=== PATIENT | female | born 1995 | race Caucasian/White ===

== ENCOUNTER 2023-02-19 01:35 | Emergency (ER) | payer MEDICAID, SELFPAY ==
[2023-02-19 01:36] VITALS: BP 130/92; PULSE 90; RESP 18; TEMP 36.8; O2SAT 99; BMI 25.5
[2023-02-19 02:14] LABS: IDNOW Serial# 08D9AD1C; Strep A Nucleic Acid Positive (Negative)
[2023-02-19 02:36] LABS: Influenza A PCR NEGATIVE (Negative); Influenza B PCR NEGATIVE (Negative); Resp Syncy Virus RNA Qual PCR NEGATIVE (Negative); SARS COV2 PCR INHOUSE NEGATIVE (Negative)
[2023-02-19 03:07] VITALS: BP 123/80; PULSE 94; RESP 18; TEMP 37.1; O2SAT 99
--- NOTE | 2023-02-19 03:07 | MHC.EDTECH ---
Hourly rounds and vitals completed,patient is resting comfortably at this time and is waiting to be seen,call naidu within reach
--- NOTE | 2023-02-19 04:55 | ED.URI ---
HPI - URI/Sore Throat General Chief Complaint: Upper Respiratory Symptoms Stated Complaint: trouble breathing, asthmatic Time Seen by Provider: 02/19/23 04:55 Source: patient Mode of arrival: ambulatory Limitations: no limitations History of Present Illness HPI Narrative: 27-year-old female who presents emergency department for evaluation of 2 days of sore throat. She states that 2 weeks prior she was sick with a URI illness which resolved except for a persistent cough. Over the past 2 days she has had a sore throat and the pain got worse this evening therefore she came to emergency department for evaluation. She denied fever, chills, chest pain, shortness of breath Related Data Previous Rx's Medication Instructions Recorded penicillin V potassium 500 mg 500 mg PO TID 10 days #30 tabs 02/19/23 tablet prednisone 20 mg tablet 20 mg PO DAILY 5 days #5 tabs 02/19/23 Allergies Allergy/AdvReac Type Severity Reaction Status Date / Time No Known Allergies Allergy Verified 02/19/23 01:41 Review of Systems Review of Systems: Yes all other systems are reviewed and are negative COUNTS INCLUDE 234 BEDS AT THE [facility] Past Medical History COUNTS INCLUDE 234 BEDS AT THE [facility] Narrative: past medical history: Asthma. Social history: She denies tobacco, alcohol and drug use Onset Date is defined in the Problem List Problems that require an onset date and time if occurred within 24 hrs of arrival to the ED Aortic Dissection and Rupture; Neurologic impairment; Cardiopulmonary Arrest; Endotracheal Intubation; Insertion or Replacement of Mechanical Circulatory Assist Device Social History Social History Advance Directives: No Advance Directives Information Provided: No Physical Exam Vital Signs: Vital Signs: Last Vital Signs Temp 98.8 F 02/19/23 03:07 Pulse 94 02/19/23 03:07 Resp 18 02/19/23 03:07 BP 123/80 02/19/23 03:07 Pulse Ox 99 02/19/23 03:07 O2 Del Method Room Air 02/19/23 03:07 BMI result Body Mass Index 25.5 vital signs were normal exam: General: Awake, alert in no distress Head: Normocephalic, atraumatic EENT: PERRL, Lids normal, sclera normal, conjunctiva normal, nose normal , ears normal, throat Posterior erythema with exudates, tonsils are symmetric, uvula midline Neck: tender anterior and posterior cervical adenopathy Lung: breath sounds symmetric, no wheezing, rales or rhonchi Chest: symmetric movement, nontender Heart: regular rate and rhythm, normal S1, S2 no murmurs or rubs Abdomen: soft, non-tender, nondistended, normal bowel sounds Medical Decision Making Medical Decision Making MDM Narrative: 27-year-old female with history of asthma who presents emergency department for evaluation of 2 days of sore throat, she had a your eye 2 weeks prior which is completely resolved except for cough. Vital signs were normal. Throat exam did reveal posterior erythema and exudates, Back exam revealed tender adenopathy. Following evaluation was ordered: COVID-19, RSV, influenza, rapid strep my interpretation patient's laboratory evaluation as follows: COVID-19, rapid strep and RSV were negative. Rapid strep was positive patient's presentation is consistent with streptococcal pharyngitis, patient was started on prednisone 500 mg 3 times a day for 10 days and prednisone 20 mg once a day for 5 days. She was given 1st dose of these medications here in the emergency department. She was given printed and verbal instructions discharged home Differential Diagnosis Differential Diagnoses: The differential diagnosis associated with the presentation includes differential diagnosis includes was not limited to viral pharyngitis, strep pharyngitis, COVID-19, influenza COVID RSV Lab Data Labs: Lab Results 02/19/23 02/19/23 Range/Units 01:54 02:00 Influenza Type A (PCR) NEGATIVE (Negative) Influenza Type B (PCR) NEGATIVE (Negative) RSV RNA Qual (PCR) NEGATIVE (Negative) SARS-CoV-2 RNA (RT-PCR) NEGATIVE (Negative) S. pyogenes GrpA MERY Positive A (Negative) Prescription Management I considered prescription management with: Antibiotic Chronic Conditions Patient?s care impacted by: Other ( asthma) Discharge Plan Discharge Clinical Impression: Acute streptococcal pharyngitis Patient Disposition: Home, Self-Care Instructions: Strep Throat (ED) Additional Instructions: your COVID-19, RSV and influenza were negative your rapid strep test was positive for Streptococcus, your sore throat is caused by strep throat Take prednisone 20 mg pills, 3 pills once a day for 5 days. While you are taking prednisone, do not take any NSAIDs (Motrin, Advil, ibuprofen, Aleve, naproxen). Take penicillin 500 mg pills, 1 pill 3 times a day for 10 days. Finish the entire antibiotic prescription. Take Tylenol (acetaminophen) 500 mg pills, 2 pills every 6 hours as needed for pain or fever. consider gargling with salt water. Place 1 tsp salt in 8 oz of warm water and gargle and spit. Try this 3 to 4 times a day to help reduce your pain. Follow-up with your doctor in 2 days. Please return to the emergency department if your symptoms get worse or if you develop any symptoms that are concerning to you. Prescriptions: New prednisone 20 mg tablet 20 mg PO DAILY 5 Days Qty: 5 0RF penicillin V potassium 500 mg tablet 500 mg PO TID 10 Days Qty: 30 0RF
[2023-02-19 05:19] VITALS: BP 127/85; PULSE 79; RESP 18; TEMP 36.9; O2SAT 99
--- NOTE | 2023-02-19 05:20 | MHC.EDTECH ---
Hourly rounds and vitals completed,patient is waiting for discharge papers at this time.
[2023-02-19] MEDS: Penicillin V Potassium 250 MG TABLET 500 MG PO (05:34)
[2023-02-19] MEDS: predniSONE 20 MG TABLET PO (05:34)
== END 2023-02-19 05:40 | disposition home or self-care (01) ==
PROVIDERS: Emergency Provider Emergency Medicine Emergency Medical Services
DX: J02.0 Streptococcal pharyngitis (principal); Z20.822 Contact with and (suspected) exposure to COVID-19; Z20.828 Contact with and (suspected) exposure to other viral communicable diseases
CPT/HCPCS: 0241U; 87651; 99283

== ENCOUNTER 2023-07-21 08:57 | Emergency (ER) | payer SELFPAY ==
--- NOTE | ~2023-07-21 | CT_ITS ---
EXAMINATION: CT SOFT TISSUE NECK WITH CONTRAST CLINICAL INFORMATION: Pain. Evaluate for peritonsillar abscess. COMPARISON: None available. TECHNIQUE: Following the intravenous administration of 60 mL of Omnipaque 350 intravenous contrast, helical imaging was performed in the axial plane with generation of coronal and sagittal reformatted images. This CT examination was performed using dose optimization techniques as appropriate, variously including the following: *Automated exposure control *Adjustment of mA and/or kV according to patient size (this includes techniques or standardized protocols for targeted exams where dose is matched to indication/reason for exam; i.e. extremities or head) *Use of iterative reconstruction technique DLP: 722 mGy-cm FINDINGS: There is mild prominence of the nasopharyngeal tonsils as well as enlargement of the palatine tonsils resulting in mild constriction of the pharyngeal airway. Small amount of fluid is seen along the surface of the base of the tongue at the oropharyngeal airway. There is asymmetric ill-defined hypoattenuation and slightly striated appearance of the right palatine tonsil consistent with inflammatory edema and possible early suppurative change but there is no discrete well-formed tonsillar or peritonsillar abscess. No drainable collection is seen. There is mild edema within the right parapharyngeal fat. The parotid and demand planning analyst spaces are normal. The submandibular glands are normal. There is a 0.4 cm hypodense nodule in the posterior right thyroid lobe. No evidence of a clinically significant nodule. No thyroid imaging follow-up recommended. The hypopharynx, epiglottis, and preepiglottic space are normal. Laryngeal structures normal. The visualized proximal esophagus is normal. The lymph nodes in the left neck are in the normal size range. The largest level 2A lymph node of the right neck is 1.4 cm in short axis dimension. There are no cyst or cystic or necrotic lymph nodes. Aortic arch is normal in caliber. The carotid and vertebral arteries opacify normally. An aberrant right subclavian artery courses posterior to the esophagus. The visualized facial bones and intracranial structures are normal. The paranasal sinuses and mastoid air cells are well aerated. Cervical spine is normal. No perivertebral soft tissue swelling. Lung apices are clear. CT/CT soft tissue neck w IV con IMPRESSION: * Imaging findings of tonsillitis, predominantly involving the right palatine tonsil which has a slightly striated, edematous appearance and there is mild edema within the parapharyngeal space but no peritonsillar abscess. * A level 2A lymph node of the right neck, likely reactive lymph node, is 1.4 cm short axis dimension. * Aberrant right subclavian artery courses posterior to the esophagus.
[2023-07-21 09:12] VITALS: BP 146/85; PULSE 109; RESP 16; TEMP 38.7; O2SAT 100; BMI 27.6
[2023-07-21 09:43] LABS: IDNOW Serial# 08D9AD1C; Strep A Nucleic Acid Negative (Negative)
[2023-07-21] MEDS: Acetaminophen 325 MG TABLET 975 MG PO (10:17)
[2023-07-21] MEDS: dexAMETHasone sod phosphate 10 MG/ML VIAL IVPUSH (10:17)
[2023-07-21] MEDS: Ampicillin Sodium/Sulbactam Na 3 GM in 0.9 % Sodium Chloride 100 ML IV (10:20)
[2023-07-21] MEDS: 0.9 % Sodium Chloride 1,000 ML 999 ML IV (10:20)
[2023-07-21] MEDS: ondansetron HCL 4 MG/2 ML VIAL IVPUSH (10:25)
[2023-07-21 10:35] LABS: Basophils Percent Auto 0.2 % (0-2); Eosinophils Absolute Auto 0.2 X10*3/uL (0.0-0.4); Eosinophils Percent Auto 1.5 % (0-4); Hematocrit 44.3 % (37.0-47.0); Hemoglobin 14.9 g/dl (12.0-16.0); Imm Gran Abs Auto 0.05 X10*3/uL (0.00-0.03); Imm Gran Pct Auto 0.4 % (0.0-0.4); Lymphocytes Absolute Auto 1.3 X10*3/uL (1.2-4.9); Lymphocytes Percent Auto 9.6 % (20-40); MANUAL DIFF FLAG SCAN; Mean Corpuscular HGB Conc 33.6 g/dl (31.0-35.0); Mean Corpuscular Hemoglobin 28.7 pg (27.0-33.0); Mean Corpuscular Volume 85.4 fL (80.0-98.0); Mean Platelet Volume 10.5 fL (9.4-12.3); Monocytes Absolute Auto 1.6 X10*3/uL (0.1-1.2); Monocytes Percent Auto 11.9 % (2-11); Neutrophils Absolute Auto 9.9 x10*3/uL (2.0-8.3); Neutrophils Percent Auto 76.4 % (45-73); Platelet Count 224 X10*3/uL (160-400); Red Blood Count 5.19 X10*6/uL (4.20-5.50); Red Cell Distribution Width 14.1 % (11.0-16.0); SCAN SMEAR FLAG 1
[2023-07-21 10:38] LABS: Lactic Acid 1.2 mmol/L (0.5-2.0)
[2023-07-21 10:50] LABS: Alanine Aminotransferase 12 U/L (0-31); Albumin Level 4.5 g/dL (3.5-5.0); Alkaline Phosphatase 61 U/L (39-117); Anion Gap 16 (12-20); Aspartate Amino Transferase 16 U/L (5-31); Bilirubin Total 0.5 mg/dL (0.0-1.0); Blood Urea Nitrogen 8 mg/dL (9-16); Calcium 9.9 mg/dL (8.4-10.2); Carbon Dioxide 24 mmol/L (22-29); Chloride 102 mmol/L (96-108); Creatinine Clr Calc Pharmacy 99.1; Estimated Glomerular Filt Rate > 60; Glucose Random 101 mg/dL (60-115); HCG Quantitative < 2 mIU/mL; Lipase 15 U/L (8-78); Magnesium 1.9 mg/dL (1.6-2.6); Potassium 3.7 mmol/L (3.3-5.1); Sodium 138 mmol/L (135-145); Total Protein 8.3 g/dL (6.5-8.0)
[2023-07-21 11:04] LABS: SLIDE REVIEW VERIFIED
[2023-07-21] MEDS: iohexoL 350 MG/ML 100 ML INFUS..BTL IV (11:44)
[2023-07-21 12:03] VITALS: TEMP 38.2
--- NOTE | 2023-07-21 12:51 | ED.URI ---
HPI - URI/Sore Throat General Chief Complaint: Upper Respiratory Symptoms Stated Complaint: Sore throat/Fever Time Seen by Provider: 07/21/23 09:51 Source: patient, RN notes reviewed and old records reviewed Mode of arrival: ambulatory Limitations: no limitations History of Present Illness ED Provider: ABRAN YI PA-C HPI Narrative: 28-year-old female with past medical history significant for recurrent streptococcal pharyngitis presents to the ED today for evaluation of sore throat x2 days. Reports associated subjective fevers, odynophagia and myalgias. He states this does feel like her typical strep throat. The last time she was treated for this was approximately 2-3 months ago. She was prescribed amoxicillin however did not take it to completion. Admits to taking 3 doses of her old amoxicillin yesterday and this morning without much improvement. She has not been taking anything for pain/ fevers at home. Denies nausea or vomiting, rashes, dysphagia, ear pain. Related Data Previous Rx's ?Medication ?Instructions ?Recorded penicillin V potassium 500 mg 500 mg PO TID 10 days #30 tabs 02/19/23 tablet prednisone 20 mg tablet 20 mg PO DAILY 5 days #5 tabs 02/19/23 amoxicillin 500 mg capsule 500 mg PO BID 10 days #20 caps 07/21/23 prednisone 20 mg tablet 40 mg (2 x 20 mg) PO DAILY 4 days 07/21/23 #8 tabs Allergies Allergy/AdvReac Type Severity Reaction Status Date / Time No Known Allergies Allergy Verified 07/21/23 09:15 Review of Systems Review of Systems: Constitutional: No fever, chills, fatigue, night sweats, weight changes ENT/Mouth: No ear pain, hearing loss, nasal congestion, sinus pain, rhinorrhea, +sore throat, +odynophagia, No dysphagia Eyes: No eye pain, swelling, redness, vision changes, discharge Cardio: No chest pain, palpitations, AVILES, orthopnea, peripheral edema Pulm: No SOB, cough, sputum, wheezing, dyspnea, hemoptysis GI: No nausea, vomiting, hematemesis, abdominal pain, diarrhea, constipation, hematochezia, melena : No irregular bleeding, dysuria, frequency, urgency, hesitancy, hematuria, flank pain MSK: No back pain, neck pain, joint pain, myalgias Skin: No lesions, rashes Neuro: No weakness, numbness, paresthesias, LOC, dizziness, headache All other systems reviewed and are negative. [facility] Past Medical History Attestation statement: The following information was validated with the patient. Source: old records reviewed and nursing notes reviewed Social History Social History Advance Directives: No Advance Directives Information Provided: Yes Physical Exam Vital Signs: Vital Signs: Last Vital Signs Temp 99.0 F 07/21/23 14:12 Pulse 104 H 07/21/23 14:12 Resp 18 07/21/23 14:12 BP 101/53 L 07/21/23 14:12 Pulse Ox 97 07/21/23 14:12 O2 Del Method Room Air 07/21/23 12:53 BMI result Body Mass Index 27.6 febrile, tachy Const: General: cooperative, healthy appearing, comfortable, no acute distress, alert and awake Orientation/consciousness: patient oriented x3 Limitations: no limitations HEENT: Other: + posterior oropharynx erythematous, bilateral tonsillar edema (R>L) with bilateral tonsillar exudates. airway patent. no muffled voice. no stridor. Uvula midline. Controlling secretions and speaking in complete sentences. b/l EACs and TMs wnl. Head: Yes normal to inspection, Yes normocephalic and Yes atraumatic Ears: hearing grossly normal bilaterally, external ears normal, TM's normal bilaterally, EAC's normal, mastoids normal and no periauricular adenopathy General nose exam: Normal external nose present and No nasal discharge present Face and sinus: Yes normal facial exam and Yes sinuses nontender Eyes: General: appearance normal, both eyes and all related structures Pupils: Equal, round and reactive pupils present Neck: Neck: Yes normal visual inspection, Yes full ROM, Yes no lymphadenopathy and Yes no meningeal signs Resp: Effort & Inspection: normal respiratory effort and able to speak in complete sentences Auscultation: clear to auscultation bilaterally Cardio: Rate: regular rate Rhythm: regular rhythm GI: Inspection: Yes normal to inspection Palpation (GI): Soft to palpation and nontender Skin: General skin exam: no rashes or lesions noted Neuro: General: patient oriented x3, gait normal, moves all extremities and no meningeal signs Cranial nerves: Yes Equal, round and reactive pupils present Extrem: General: Yes normal to inspection Course Course Course Narrative: 1412-- [place] [address]. No left shift. No anemia. H&H stable. Chemistry without acute electrolyte abnormality requiring intervention. Beta hCG undetectable. Normal renal and liver function. Patient has tested negative for strep pharyngitis. Patient initially febrile to 101.7 with associated tachycardia likely secondary to fever. Lactic and blood cultures ordered at that time. Lactic returned WNL. I do not have suspicion for sepsis. Patient was treated with 1L of IV fluids along with empiric IV Zosyn while awaiting CT soft tissue neck. She also received 10 of IV Decadron and Zofran. On re-evaluation, patient reports improvement in breathing and pain. Her lungs are clear. She has not stridorous. No muffled voice. She is well-appearing. Temp is now 99F after administration of Tylenol and ibuprofen. CT showing findings consistent with tonsillitis, predominantly involving the right palintine tonsil which is slightly striated, edematous with mild edema in the parapharyngeal space without evidence of peritonsilar abscess. No evidence of retropharyngeal abscess. > I did discuss all results with patient. I feel she is safe for discharge home with prednisone and amoxicillin which patient is agreeable with. Patient has remained stable throughout ED visit today. Discussed worrisome signs and symptoms and when to return to the ED. All questions answered at this time. Patient is agreeable with disposition and stable for discharge. Medications Administered Discontinued Medications Generic Name Dose Route Start Last Admin Trade Name Freq PRN Reason Stop Dose Admin Acetaminophen 975 mg 07/21/23 09:52 07/21/23 10:17 Acetaminophen 325 Mg Tablet PO 07/21/23 09:53 975 mg ONCE ONE Administration Dexamethasone Sodium Phosphate 10 mg 07/21/23 09:55 07/21/23 10:17 Dexamethasone Sod Phosphate 10 Mg/Ml Vial IVPUSH 07/21/23 09:56 10 mg ONCE ONE Administration Ampicillin Sodium/Sulbactam 100 mls @ 200 mls/hr 07/21/23 09:52 07/21/23 11:01 Sodium 3 gm/ Sodium Chloride IV 07/21/23 10:21 Infused ONCE ONE Infusion Sodium Chloride 1,000 mls @ 999 mls/hr 07/21/23 10:30 07/21/23 10:20 Ns IV 07/21/23 11:30 999 mls/hr .Q1H1M KATIANA Administration Ibuprofen 800 mg 07/21/23 12:58 07/21/23 13:04 Ibuprofen 800 Mg Tablet PO 07/21/23 12:59 800 mg ONCE ONE Administration Iohexol 100 ml 07/21/23 11:44 07/21/23 11:44 Iohexol 350 Mg/Ml 100 Ml Infus..Btl IV 07/21/23 11:45 60 ml ONCE ONE Administration Ondansetron HCl 4 mg 07/21/23 10:23 07/21/23 10:25 Ondansetron Hcl 4 Mg/2 Ml Vial IVPUSH 07/21/23 10:24 4 mg ONCE ONE Administration Medical Decision Making Medical Decision Making [facility] Narrative: 28-year-old female with past medical history significant for recurrent streptococcal pharyngitis presents to the ED today for evaluation of sore throat x2 days. Patient initially febrile to 101.7, tachy to 109 likely secondary to fever. She is nontoxic-appearing and in no acute distress. On exam, posterior oropharynx erythematous, bilateral tonsillar edema (R>L) with bilateral tonsillar exudates. airway patent. no muffled voice. no stridor. Uvula midline. Controlling secretions and speaking in complete sentences. b/l EACs and TMs wnl. Differential diagnosis includes strep throat, viral syndrome. Lower suspicion for TECHNICAL SUPPORT PROFESSIONAL, retropharyngeal abscess. Unlikely dental abscess, epiglottisis, ards, pneumonia. Plan for labs, viral/strep swabs, ct, re-eval. Differential Diagnosis Differential Diagnoses: The differential diagnosis associated with the presentation includes as above. Admission/Observation Not indicated Lab Data [facility] Lab Attestation statement: I reviewed the patient's lab results. as above 07/21/23 10:12 07/21/23 10:12 Labs: Lab Results 07/21/23 07/21/23 Range/Units 09:25 10:12 WBC 13.0 H (4.8-10.8) X10*3/uL RBC 5.19 (4.20-5.50) X10*6/uL Hgb 14.9 (12.0-16.0) g/dl Hct 44.3 (37.0-47.0) % MCV 85.4 (80.0-98.0) fL MCH 28.7 (27.0-33.0) pg MCHC 33.6 (31.0-35.0) g/dl RDW 14.1 (11.0-16.0) % Plt Count 224 (160-400) X10*3/uL MPV 10.5 (9.4-12.3) fL Immature Gran % (Auto) 0.4 (0.0-0.4) % Neut % (Auto) 76.4 H (45-73) % Lymph % (Auto) 9.6 L (20-40) % Howell % (Auto) 11.9 H (2-11) % Eos % (Auto) 1.5 (0-4) % Baso % (Auto) 0.2 (0-2) % Lymph # (Auto) 1.3 (1.2-4.9) X10*3/uL Howell # (Auto) 1.6 H (0.1-1.2) X10*3/uL Eos # (Auto) 0.2 (0.0-0.4) X10*3/uL Baso # (Auto) 0.0 (0.0-0.2) X10*3/uL Abs Immat Gran (auto) 0.05 H (0.00-0.03) X10*3/uL Absolute Neuts (auto) 9.9 H (2.0-8.3) x10*3/uL Absolute Nucleated RBC 0.000 (0.0-0.012) X10*3/uL Nucleated RBC % (auto) 0.0 (0.0-0.2) /100WBC Smear Tech's Comments VERIFIED Sodium 138 (135-145) mmol/L Potassium 3.7 (3.3-5.1) mmol/L Chloride 102 (96-108) mmol/L Carbon Dioxide 24 (22-29) mmol/L Anion Gap 16 (12-20) BUN 8 L (9-16) mg/dL Creatinine 0.78 (0.5-1.4) mg/dL Estim Creat Clear Calc 99.1 Estimated GFR > 60 Random Glucose 101 (60-115) mg/dL Lactic Acid 1.2 (0.5-2.0) mmol/L Calcium 9.9 (8.4-10.2) mg/dL Magnesium 1.9 (1.6-2.6) mg/dL Total Bilirubin 0.5 (0.0-1.0) mg/dL AST 16 (5-31) U/L ALT 12 (0-31) U/L Alkaline Phosphatase 61 (39-117) U/L Total Protein 8.3 H (6.5-8.0) g/dL Albumin 4.5 (3.5-5.0) g/dL Lipase 15 (8-78) U/L Beta HCG, Quant < 2 mIU/mL S. pyogenes GrpA MERY Negative (Negative) Independent Interpretation I performed an independent interpretation of an: CT Scan Interpretation: CT without evidence of TECHNICAL SUPPORT PROFESSIONAL, agree with radiologist's interpretation. Radiology Impression Discussion of test interpretation with radiology: I have reviewed the radiologist's reading. Radiologist Impression: EXAMINATION: CT SOFT TISSUE NECK WITH CONTRAST CLINICAL INFORMATION: Pain. Evaluate for peritonsillar abscess. COMPARISON: None available. TECHNIQUE: Following the intravenous administration of 60 mL of Omnipaque 350 intravenous contrast, helical imaging was performed in the axial plane with generation of coronal and sagittal reformatted images. This CT examination was performed using dose optimization techniques as appropriate, variously including the following: *Automated exposure control *Adjustment of mA and/or kV according to patient size (this includes techniques or standardized protocols for targeted exams where dose is matched to indication/reason for exam; i.e. extremities or head) *Use of iterative reconstruction technique DLP: 722 mGy-cm FINDINGS: There is mild prominence of the nasopharyngeal tonsils as well as enlargement of the palatine tonsils resulting in mild constriction of the pharyngeal airway. Small amount of fluid is seen along the surface of the base of the tongue at the oropharyngeal airway. There is asymmetric ill-defined hypoattenuation and slightly striated appearance of the right palatine tonsil consistent with inflammatory edema and possible early suppurative change but there is no discrete well-formed tonsillar or peritonsillar abscess. No drainable collection is seen. There is mild edema within the right parapharyngeal fat. The parotid and glass unloading equipment tender spaces are normal. The submandibular glands are normal. There is a 0.4 cm hypodense nodule in the posterior right thyroid lobe. No evidence of a clinically significant nodule. No thyroid imaging follow-up recommended. The hypopharynx, epiglottis, and preepiglottic space are normal. Laryngeal structures normal. The visualized proximal esophagus is normal. The lymph nodes in the left neck are in the normal size range. The largest level 2A lymph node of the right neck is 1.4 cm in short axis dimension. There are no cyst or cystic or necrotic lymph nodes. Aortic arch is normal in caliber. The carotid and vertebral arteries opacify normally. An aberrant right subclavian artery courses posterior to the esophagus. The visualized facial bones and intracranial structures are normal. The paranasal sinuses and mastoid air cells are well aerated. Cervical spine is normal. No perivertebral soft tissue swelling. Lung apices are clear. CT/CT soft tissue neck w IV con IMPRESSION: * Imaging findings of tonsillitis, predominantly involving the right palatine tonsil which has a slightly striated, edematous appearance and there is mild edema within the parapharyngeal space but no peritonsillar abscess. * A level 2A lymph node of the right neck, likely reactive lymph node, is 1.4 cm short axis dimension. * Aberrant right subclavian artery courses posterior to the esophagus. External Record Review External record reviewed: Inpatient record Prescription Management I considered prescription management with: Pain Medication and Antibiotic (amoxicillin) Social Determinants Patient?s care significantly limited by Social Determinants of Health including: Other Social Determinant of Health Critical Care Time Critical Care Time Critical Care Time: No Discharge Plan Discharge Clinical Impression: Tonsillitis, Acute streptococcal pharyngitis Patient Disposition: Home, Self-Care Instructions: Pharyngitis (ED), Strep Throat (ED), Tonsillitis (ED) Additional Instructions: You were seen in ED today for sore throat. You tested negative for strep throat however given your physical exam, you will be treated for strep throat. Amoxicillin is an antibiotic that has been sent to your pharmacy. Take this twice daily for the next 10 days to treat strep throat. Do not stop taking these antibiotics early or miss any doses as this may cause infection to return or worsen. Prednisone as a steroid that has been sent to your pharmacy for you to take over the next 5 days. This will help with inflammation. You were given a dose of steroids in the ED today so please start this tomorrow. Cepacol throat lozenges have been sent to your pharmacy to help with throat pain. You may also purchase [id number] chloraseptic spray to numb your throat. Take Tylenol and ibuprofen as needed for body aches or fevers. Make sure to change your toothbrush as this contains bacteria. Strep throat is contagious. If anyone else in your household is exhibiting symptoms, please advise them to come to the ED, urgent care, or to see their primary care provider. Follow up with your primary care provider as needed. Return to the emergency department if your symptoms persist or worsen despite treatment or if you have difficulty swallowing, opening your mouth, or develop a rash. In the case of emergency, call 911.? Prescriptions: New amoxicillin 500 mg capsule 500 mg PO BID 10 Days Qty: 20 0RF prednisone 20 mg tablet 40 mg PO DAILY 4 Days Qty: 8 0RF No Action prednisone 20 mg tablet 20 mg PO DAILY 5 Days Qty: 5 0RF penicillin V potassium 500 mg tablet 500 mg PO TID 10 Days Qty: 30 0RF Stand Alone Forms: Work/School Release Interventions: ED Discharge Assessment Last Done: 07/21/23 14:12 Discharge Date/Time: 07/21/23 14:14 Print Language: Arabic
[2023-07-21 12:53] VITALS: BP 101/53; PULSE 104; RESP 18; TEMP 38.3; O2SAT 97
[2023-07-21] MEDS: Ibuprofen 800 MG TABLET PO (13:04)
[2023-07-21 13:55] VITALS: TEMP 37.2
[2023-07-21 14:12] VITALS: BP 101/53; PULSE 104; RESP 18; TEMP 37.2; O2SAT 97
== END 2023-07-21 14:14 | disposition home or self-care (01) ==
PROVIDERS: Physician Assistant Medical; Emergency Provider Emergency Medicine
DX: J03.90 Acute tonsillitis, unspecified (principal); J02.0 Streptococcal pharyngitis; R50.9 Fever, unspecified; R00.0 Tachycardia, unspecified
CPT/HCPCS: 36415; 70491; 80053; 83605; 83690; 83735; 84702; 85025; 87040; 87651; 96365; 96375; 99284; J0295; J1100; J2405; Q9967